=== PATIENT | female | born 1970 | race Caucasian/White ===

== ENCOUNTER 2019-11-15 01:08 | Outpatient (CLI) | payer OTHER, SELFPAY ==
[2019-11-15 19:20] LABS: SARS-CoV-2 RNA PCR Negative
== END 2019-11-15 01:09 | disposition home or self-care (01) ==
LOC: ANHCOVIDDT 01:08
PROVIDERS: PCP Family Medicine; Visit Provider Urology
DX: Z01.812 Encounter for preprocedural laboratory examination (principal); Z20.828 Contact with and (suspected) exposure to other viral communicable diseases
CPT/HCPCS: 87635; C9803; U0003

== ENCOUNTER 2019-11-17 00:53 | Day surgery (SDC) | payer OTHER, MEDICAID, SELFPAY ==
[2019-10-05 14:35] VITALS: BMI 34.0
[2019-11-06 14:52] VITALS: BMI 34.0
--- NOTE | 2019-11-13 10:44 | PM.IMHP ---
H&P: HPI History of Present Illness Date/Time: 11/13/19 10:44 Chief complaint: Right Renal Stone Narrative: Elaina Fitzgerald is a 49 year old female with a 1cm right lower pole stone PMFSH Social History Social History Smoking status: Never smoker Spiritual care concerns: No Meds Home Medications and Allergies Home Medications Medication Instructions Recorded Confirmed Type L.acid-B.bifidum-B.animal-FOS 100 mg PO DAILY 10/05/19 11/06/19 History [Probiotic Complex] albuterol sulfate 2 puff INHALATION DIRECTED PRN 10/05/19 11/06/19 History bupropion HCl 300 mg PO DAILY 10/05/19 11/06/19 History cetirizine 10 mg PO DAILY 10/05/19 11/06/19 History lamotrigine 150 mg PO DAILY 10/05/19 11/06/19 History metformin 1,000 mg PO BID 10/05/19 11/06/19 History multivitamin 1 tablet PO DAILY 10/05/19 11/06/19 History oxybutynin chloride 10 mg PO BID 10/05/19 11/06/19 History oxycodone-acetaminophen 1 tablet PO TID PRN 10/05/19 11/06/19 History tiotropium bromide [Spiriva with 1 cap INHALATION DAILY PRN 10/05/19 11/06/19 History HandiHaler] buspirone 10 mg PO TID PRN 11/06/19 11/06/19 History Allergies Allergy/AdvReac Type Severity Reaction Status Date / Time No Known Allergies Allergy Unverified 11/06/19 14:52 Exam Const: General: no acute distress HENMT: Mouth: Yes moist mucous membranes Eyes: General: appearance normal, both eyes and all related structures Neck: Neck: supple Resp: Auscultation: clear to auscultation bilaterally Skin: General skin exam: normal color Extrem: General: normal to inspection Psych: Mental Status: mental status grossly normal Assessment and Plan Assessment and plan (1) Right renal stone: Code(s): N20.0 - Calculus of kidney Status: Acute Assessment and Plan: Right ESWL
[2019-11-17] VITALS (7 sets, daily range): BP systolic 124–139; BP diastolic 81–94; PULSE 64–75; RESP 12–20; TEMP 36.1–36.3; O2SAT 94–100
--- NOTE | ~2019-11-17 | XR_ITS ---
EXAMINATION: XR abdomen/kub 1V INDICATION: Right-sided stone TECHNIQUE: Supine view of the abdomen is obtained. COMPARISON: None FINDINGS: An 8 mm stone projects in the lower pole of the right kidney. No left urolithiasis is noted . Pelvic calcifications likely reflect phleboliths. There is mild bilateral hip osteoarthritis. The b owel gas pattern is normal. There is a least moderate lower lumbar spondylosis. IMPRESSION: 1. Right nephrolithiasis. Reviewed, dictated and finalized at location B. IMPRESSION: 1. Right nephrolithiasis.
--- NOTE | 2019-11-17 07:28 | WPDHPUPDATE1 ---
History and Physical Update Update Date/Time: 11/17/19 07:28 History and Physical has been reviewed, including an updated exam of the patient. There are NO changes in the patient's condition. Risks, benefits, and alternatives have been discussed and questions answered. Patient agrees to proceed with procedure.
--- NOTE | 2019-11-17 11:37 | WPDANESEPPF ---
Anes - Initial Pre Proc Eval Procedure: Operation Date: 11/17/19 12:30 Proposed Procedures p Right Renal Extracorporeal Shock Wave Lithotripsy - Bill Stone MD Date/Time: 11/17/19 11:37 Surgeon: Bill Stone MD Pre Op Diagnosis: Right Renal Stone Patient Data Age: 49 Gender: F Height: 1.7 m Weight: 98.43 kg Allergies Allergy/AdvReac Type Severity Reaction Status Date / Time No Known Allergies Allergy Unverified 11/17/19 11:31 Home Medications Medication Instructions Recorded Confirmed Type L.acid-B.bifidum-B.animal-FOS 100 mg PO DAILY 10/05/19 11/17/19 History [Probiotic Complex] albuterol sulfate 2 puff INHALATION DIRECTED PRN 10/05/19 11/17/19 History bupropion HCl 300 mg PO DAILY 10/05/19 11/17/19 History cetirizine 10 mg PO DAILY 10/05/19 11/17/19 History lamotrigine 150 mg PO DAILY 10/05/19 11/17/19 History metformin 1,000 mg PO BID 10/05/19 11/17/19 History multivitamin 1 tablet PO DAILY 10/05/19 11/17/19 History oxybutynin chloride 10 mg PO BID 10/05/19 11/17/19 History oxycodone-acetaminophen 1 tablet PO TID PRN 10/05/19 11/17/19 History tiotropium bromide [Spiriva with 1 cap INHALATION DAILY PRN 10/05/19 11/17/19 History HandiHaler] buspirone 10 mg PO TID PRN 11/06/19 11/17/19 History albuterol sulfate [Ventolin HFA] 2 puff INHALATION QID PRN 11/17/19 11/17/19 History methocarbamol [Robaxin-750] 750 mg PO QID PRN 11/17/19 11/17/19 History ropinirole 1 mg PO HS 11/17/19 11/17/19 History sumatriptan succinate 50 mg PO ONCE PRN 11/17/19 11/17/19 History Patient hx anesthesia problems: none Family hx anesthesia problems: none PMFSH Past Medical History Medical History (Updated 11/17/19 @ 11:40 by Simon Flores MD) Anxiety Arthritis Asthma Back pain Depression Diabetes STATES NO LONGER DIABETIC- RESOLVED W/ WEIGHT LOSS. Obesity AMINATA (obstructive sleep apnea) Social History Social History Smoking status: Never smoker Spiritual care concerns: No Anes - Eval Final PreProcedure Day of Procedure 11/17/19 11:37 Patient weight: obese Heart: regular rate and rhythm Lungs: clear to auscultation and normal air movement Airway: Mallampati scale class II Neurological: alert and oriented Last oral intake: >/= 8 hours ASA classification: III Emergent: no Anesthetic plan: proceed Anesthesia type and monitoring: general LMA Informed Consent: The patient's anesthetic plan and its attendant risks and benefits were discussed with the patient/family/POA. Questions were solicited and answers provided to the satisfaction of the patient/family/POA.
[2019-11-17] MEDS: LACTATED RINGERS 1,000 ML 30 ML IV CONT (11:50)
[2019-11-17] MEDS: ceFAZolin 2 GM/D5W 50 ML 2 GM/50 ML BAG IVPB (12:52)
--- NOTE | 2019-11-17 13:44 | PM.PROC ---
Procedure Note - Detailed Date of procedure: 11/17/19 Pre-op diagnosis: Right Renal Stone Post-op diagnosis: same Procedure performed: Right extrapleural shockwave lithotripsy Description of procedure: she has quickly identified informed consent is obtained. Spine to the operating room. She was given general anesthesia. A time-out performed. We targeted the stone with fluoroscopy. We delivered lithotripsy. Two thousand five hundred shocks total. Power level up to 4. There is excellent fragmentation of the stone. At the conclusion she was awakened and transferred to the PACU in stable condition. Anesthesia: GLMA Surgeon: Bill Stone MD Estimated blood loss (mL): 0 Drains: No Packing: No Pathology: none sent Complications: No immediate complications Condition: stable Disposition: PACU
== END 2019-11-17 15:20 | disposition home or self-care (01) ==
PROVIDERS: PCP Family Medicine; Visit Provider Urology
PROC: (CPT 50590; principal; 2019-11-17 12:30)
DX: N20.0 Calculus of kidney (principal)
CPT/HCPCS: 50590; 74018; 87635; C9803; J0690; J1100; J2250; J2405; J2704; J3010; J7120; U0003

== ENCOUNTER 2019-12-01 15:22 | Outpatient (CLI) | payer OTHER, MEDICAID, SELFPAY ==
--- NOTE | ~2019-12-01 | XR_ITS ---
EXAMINATION: XR abdomen/kub 1V INDICATION: Right kidney stone post lithotripsy TECHNIQUE: Supine views of the abdomen were obtained on 2 radiographs. COMPARISON: 11/17/2019 FINDINGS: The calcification previously seen projecting in the right kidney lower pole is no longer id entified, consistent with history of lithotripsy. There are phleboliths of the pelvis. No stone fragm ents are identified in the right kidney, the ureter, or the bladder. There is mild bilateral hip oste oarthritis. The bowel gas pattern is normal. IMPRESSION: 1. No urolithiasis identified. Reviewed, dictated and finalized at location A.
== END 2019-12-01 15:23 | disposition home or self-care (01) ==
LOC: ANHIMG 15:29
PROVIDERS: PCP Family Medicine; Visit Provider Urology
DX: N20.0 Calculus of kidney (principal)
CPT/HCPCS: 74018

== ENCOUNTER → 2020-03-26 12:03 | Outpatient (CLI) | payer OTHER, MEDICAID, SELFPAY ==
--- NOTE | ~2020-03-26 | XR_ITS ---
EXAMINATION: XR lumbar spine 2-3V EXAM DATE: 03/26/2020 13:01 INDICATION: stenosis, lumbar disc displacement. TECHNIQUE: Lumber spine frontal, lateral, lateral L5-S1 projections for interpretation. Correlation i s made to lumbar spine MRI same date. FINDINGS: There is moderate to severe loss of the L3-4 disc height with about 4 mm left lateral subl uxation at that level. The vertebral bodies are aligned in the AP dimension. Mild disc disease at the other lumbar levels. There is mild lumbar levoscoliosis. Mild upper lumbar, moderate lower lumbar fa cet arthropathy. Sacrum, sacroiliac joints, sacral arcuate lines are intact. Paraspinal soft tissue i s unremarkable. There are no acute fractures identified. There are no bony erosions identified. IMPRESSION: 1. L3-4 moderate to severe disc disease. 2. Mild levoscoliosis. 3. Moderate lower lumbar facet arthropathy. Reviewed, dictated and finalized at location A. ENTRY OPERATOR
--- NOTE | ~2020-03-26 | MR_ITS ---
EXAMINATION: MR lumbar spine wo con DATE: 03/26/2020 12:53 INDICATION: Low back pain. TECHNIQUE: Magnetic resonance imaging (MRI) of the lumbar spine was performed without intravenous con trast. Sequences included sagittal T2-weighted FSE, sagittal T2-weighted FS FSE, sagittal T1-weighted FSE, and axial T2-weighted FSE. COMPARISON: None FINDINGS: There is 8 degrees levocurvature of lumbar spine. Vertebral body heights are normal. There are at least 10 lesions of bone marrow replacement scattered in the spine and sacrum. There is severe ly decreased disc height at L3-L4 and L4-L5 with endplate remodeling. The distal spinal cord signal i ntensity is normal. The conus medullaris is at L1. The following disc levels are specifically discuss ed: L1-L2: The disc does not extend beyond the endplate margin. There is mild bilateral facet joint osteo arthritis. There is mild left neural foraminal stenosis. There is no central canal stenosis. L2-L3: The disc does not extend beyond the endplate margin. There is mild bilateral facet joint osteo arthritis. There is mild left neural foraminal stenosis. There is no central canal stenosis. L3-L4: The disc is bulging and has an annular fissure. There is mild bilateral facet joint osteoarthr itis. There is moderate right and mild left neural foraminal stenosis. There is mild central canal st enosis. L4-L5: The disc is bulging and has an annular fissure. There is mild bilateral facet joint osteoarthr itis. There is mild right and moderate left neural foraminal stenosis. There is mild central canal st enosis. L5-S1: The disc does not extend beyond the endplate margin. There is mild right and severe left facet joint osteoarthritis. There is mild left neural foraminal stenosis. There is no central canal stenos is. IMPRESSION: 1. Scattered lesions of bone marrow replacement, consistent with metastatic disease versus multiple m yeloma. 2. Severe lumbar spondylosis. Reviewed, dictated and finalized at location B. GOODS TESTER IMPRESSION: 1. Scattered lesions of bone marrow replacement, consistent with metastatic dis ease versus multiple myeloma. 2. Severe lumbar spondylosis.
== END ==
PROVIDERS: PCP Family Medicine
DX: M51.26 Other intervertebral disc displacement, lumbar region (principal); M47.816 Spondylosis without myelopathy or radiculopathy, lumbar region; M48.061 Spinal stenosis, lumbar region without neurogenic claudication; M48.07 Spinal stenosis, lumbosacral region; M47.817 Spondylosis without myelopathy or radiculopathy, lumbosacral region; M51.27 Other intervertebral disc displacement, lumbosacral region; M51.36 Other intervertebral disc degeneration, lumbar region
CPT/HCPCS: 72100; 72148

== ENCOUNTER → 2020-04-05 13:47 | Outpatient (CLI) | payer OTHER, MEDICAID, SELFPAY ==
--- NOTE | ~2020-04-05 | CT_ITS ---
EXAMINATION: CT chest abdomen pelvis w con DATE: 04/05/2020 14:18 INDICATION: Scattered lesions of bone marrow replacement on 03/26/2020 MRI lumbar spine examination, c onsistent with metastatic disease versus multiple myeloma TECHNIQUE: Computed tomography (CT) of the chest, abdomen, and pelvis was performed with 100 cc Omnip aque 350 intravenous contrast. Automated exposure control and iterative reconstruction technique were employed. Exam dose: 1406.42 mGy-cm total exam DLP. COMPARISON: 03/26/2020 MRI lumbar spine lumbar spine FINDINGS: CHEST CT: There is superior mediastinal, right paratracheal, prevascular and aortopulmonary window lymphadenopa thy. No axillary lymphadenopathy. No thoracic aortic aneurysm or dissection. Normal heart size. Coronary artery atherosclerosis. Minimal bilateral hilar eduardo prominence. No pulmonary infiltrate or consolidation or pulmonary mass lesion is detected. ABDOMEN/PELVIS CT: No hepatic space-occupying mass lesion is evident. The gallbladder is present. No gallbladder wall th ickening or pericholecystic fluid or fat stranding. No bile duct dilatation. No pancreatic mass lesion or calcification or ductal dilatation is detected. Multiple small nodular hypoenhancing areas of the spleen are noted. Postoperative change of the stomach (gastric sleeve). No adrenal mass lesion. There are some shoddy nonenlarged periaortic and aortocaval lymph nodes. Normal caliber of the abdominal aorta. No evidence of appendicitis. No bowel obstruction, bowel wall thickening, pneumatosis or intraperiton eal free air is detected. The uterus, adnexal areas and urinary bladder are unremarkable. There are degenerative changes of the thoracic and lumbar spine, including severe degenerative diseas e at L3-4 moderately severe degenerative disc disease at L4-5.. No suspicious osteolytic or osteoblas tic lesions are noted. IMPRESSION: Postoperative change of the stomach (gastric sleeve) Nonspecific mediastinal and minimal bilateral hilar lymphadenopathy Reviewed, dictated and finalized at [facility]. Reviewed, dictated and finalized at location A. ER THINNER
== END ==
PROVIDERS: PCP Family Medicine; Visit Provider Family Medicine
DX: R93.7 Abnormal findings on diagnostic imaging of other parts of musculoskeletal system (principal)
CPT/HCPCS: 71260; 74177; Q9967